=== PATIENT | female | born 1945 | race Caucasian/White ===

== ENCOUNTER 2016-07-22 19:36 | Observation (INO) | payer MEDICARE, BC ==
--- NOTE | ~2016-07-22 | DS ---
Discharge Summary [facility] [address] [place]. [address] NAME: FIDENCIO LOVE : 43 STATUS : DIS Shmuel PAT#: [id number] AGE: 70 ADM/REG DATE : 07/22/16 MR#: [id number] REPORT SERV DATE: 07/25/16 DICTATED BY: EDWIN KAN DATE: 07/24/16 REPORT STATUS : Draft TRANSCRIBED BY: MODL DATE: 07/24/16 ADMISSION DATE: 07/22/2016 DISCHARGE DATE: 07/24/2016 HOSPITAL COURSE: A 70-year-old female with known history of iron deficiency anemia; history of oral mandibular dystonia, possibly due to psychiatric medication in the past; history of hiatal hernia; known history of osteoporosis; generalized anxiety disorder; and rectocele, status post surgical repair in the past. The patient comes in not taking any NSAIDs except aspirin, hemoglobin of 5.7, microcytic MCV of 63, baseline appears to be near 9 to 10 back in 01/2016. Symptomatic anemia with shortness of breath, as a result was given 2 PRBC infusions. Her guaiac was interestingly negative, placed on PPI intravenous b.i.d. I attempted an endoscopic evaluation, the patient adamantly refused as she had some trauma from her mother unexpectedly having a fatal complication of perforation from colonoscopy in the past. As a result of the patient's guaiac negativity was given iron dextran after 2 PRBC infusions. Haptoglobin LDH was done, LDH was 163, however, that was after transfusion. Initially, it was 214 though. Haptoglobin is pending. Peripheral smear is also pending, but that was again done after PRBC infusion, could skew the results. CT of abdomen and pelvis showed a very large hiatal hernia; adjacent mid mild atelectasis; mild diverticulosis, sigmoid; and multiple DJD, thoracolumbar spine. The patient declined any endoscopic evaluation from [facility] Ambrosio as a referral as an outpatient as well as Hematology given guaiac negativity. No overt bleed but likely there is a chronic slow bleed, if anything could consider possible nuclear medicine scan as an outpatient. DISCHARGE MEDICATIONS: Prozac 20 p.o. daily; Ativan 1 mg p.o. at bedtime, will try to titrate that down as an outpatient; Prilosec 20 p.o. b.i.d., could consider using that for three months and PPI p.o. daily thereafter; Flonase nasal spray; oral iron 300 p.o. t.i.d. with meals; Ensure 1 can p.o. b.i.d., due to her dystonia she is having decreased intake, needs adequate nutrition, is to use Ensure Boost aggressively. CONSULTATIONS: GI. PROCEDURES: None. DISCHARGE DIAGNOSES: 1. Symptomatic anemia/iron deficiency anemia. She had a low iron and low ferritin. 2. Oral mandibular dystonia. 3. Generalized anxiety disorder. 4. Mild protein-calorie malnutrition. All questions were answered, took over 30 minutes to do. TYRELL/ALTON Edwin Kan DO Discharge Summary [address] [address] NAME: FIDENCIO LOVE : 43 STATUS : DIS Shmuel PAT#: [id number] AGE: 70 ADM/REG DATE : 07/22/16 MR#: [id number] REPORT SERV DATE: 07/25/16 DICTATED BY: EDWIN KAN DATE: 07/24/16 REPORT STATUS : Draft TRANSCRIBED BY: ALTON DATE: 07/24/16 / [id number]
--- NOTE | ~2016-07-22 | CN ---
Consultation Report [place] [id number] [facility] [place]. [address] NAME: FIDENCIO LOVE : 43 STATUS : ADM Shmuel PAT#: [id number] AGE: 70 ADM/REG DATE : 07/22/16 MR#: [id number] REPORT SERV DATE: 07/23/16 DICTATED BY: YOUNG TO DATE: 07/23/16 REPORT STATUS : Draft TRANSCRIBED BY: MODJoao DATE: 07/23/16 GI CONSULTATION DATE OF CONSULTATION: HISTORY OF PRESENT ILLNESS: The patient is a 70-year-old white female whom I am consulted for anemia. The patient evidently has anemia for some period of time. Her hemoglobin was noted to drop from 9.2 to 5.6. She denies any bleeding, any heartburn, any dysphagia, early satiety, or change in her bowel habits. She has not had colonoscopy or endoscopic workup at any point. She has been on iron therapy before and has had problems with her diet due to some temporomandibular joint dysfunction. PAST MEDICAL HISTORY: 1. Status post rectocele. 2. Mandibular dystonia. MEDICATIONS: Reviewed. She does take aspirin daily, but otherwise, no nonsteroidal. ALLERGIES: NONE. FAMILY HISTORY: Negative for colon cancer with her mother evidently from a perforation, which sounds like after a barium enema. PHYSICAL EXAMINATION: GENERAL: The patient is a pleasant white female, in no acute distress. LUNGS: Clear. CARDIOVASCULAR: Regular rhythm. ABDOMEN: Soft, without masses or tenderness. LABORATORIES: Reviewed. ASSESSMENT: The patient has severe iron-deficiency anemia, certainly occult gastrointestinal malignancy needs to be excluded. It may be that she has difficulty absorbing iron. I have suggested either endoscopic or barium evaluation of her gastrointestinal tract. She is hesitant at this point due to the fact that her mother had a perforation and does not wish to proceed at this time. She wishes to discuss it with her family and think about it later and proceed if she is agreeable to the point. RECOMMENDATION: 1. Continue proton pump inhibitor. 2. Avoid aspirin. 3. Endoscopic evaluation if the patient is agreeable. 4. Certainly iron therapy would be reasonable on this lady. Consultation Report [place] [id number] [facility] [place]. [address] NAME: FIDENCIO LOVE : 43 STATUS : ADM Shmuel PAT#: [id number] AGE: 70 ADM/REG DATE : 07/22/16 MR#: [id number] REPORT SERV DATE: 07/23/16 DICTATED BY: YOUNG TO DATE: 07/23/16 REPORT STATUS : Draft TRANSCRIBED BY: ALTON DATE: 07/23/16 GIUSEPPE/ALTON Young To M.D. / [id number] CC: DO Chan Mo M.D.
--- NOTE | ~2016-07-22 | HP ---
History And Physical [place] [address] [place]. [address] NAME: FIDENCIO LOVE : 43 STATUS : ADM Shmuel PAT#: [id number] AGE: 70 ADM/REG DATE : 07/22/16 MR#: [id number] REPORT SERV DATE: 07/23/16 DICTATED BY: ROLO WELLS DATE: 07/22/16 REPORT STATUS : Draft TRANSCRIBED BY: MODL DATE: 07/22/16 DATE OF ADMISSION: 07/22/2016 POINT OF ENTRY: [facility] Emergency Department. CHIEF COMPLAINT: Weakness, dyspnea on exertion, and low hemoglobin levels. HISTORY OF PRESENT ILLNESS: Ms. Love is a 70-year-old female with a history of iron deficiency anemia, not on iron supplementation, as well as oral mandibular dystonia, known history of hiatal hernia, who presents to the emergency department today from Dr. Goldman's office for low hemoglobin levels as well as associated weakness and dyspnea on exertion. The patient states for the past three weeks, she has had worsening weakness with dyspnea on exertion as well as some sensation of presyncope. She was seen by Dr. Goldman in clinic today and her hemoglobin level was noted to be 5.4, and she was referred to the emergency department, as there were no available beds for direct admission. 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 She has had a prior diagnosis of iron deficiency anemia, but is not on any iron supplements at this time for unclear reasons. She denies any hemoptysis, hematemesis, hematuria, melena, or hematochezia. Is on aspirin, but no other blood thinners. Does not take NSAIDs. Initial evaluation in the emergency department is notable for stable vital signs with a hemoglobin level of 5.7 with an MCV of 63. Remainder of her labs are otherwise unremarkable. She was subsequently admitted to the Hospitalist Service for further evaluation and management. Occult stool here in the ER was negative. COMPREHENSIVE REVIEW OF SYSTEMS: Otherwise negative unless listed in history of present illness. PREVIOUS MEDICAL HISTORY: 1. Iron deficiency anemia, not on treatment. 2. Rectocele, status post repair. 3. Osteoporosis. 4. Hiatal hernia. 5. Anxiety and depression. 6. Oral mandibular dystonia. SURGICAL HISTORY: Rectocele repair. ALLERGIES: NO KNOWN DRUG ALLERGIES. HOME MEDICATIONS: 1. Aspirin 81 mg daily. 2. Prozac 20 mg daily. 3. Flonase one spray nasal daily p.r.n. History And Physical [address] [address] NAME: FIDENCIO LOVE : 43 STATUS : ADM Shmuel PAT#: [id number] AGE: 70 ADM/REG DATE : 07/22/16 MR#: [id number] REPORT SERV DATE: 07/23/16 DICTATED BY: ROLO WELLS DATE: 07/22/16 REPORT STATUS : Draft TRANSCRIBED BY: MODJoao DATE: 07/22/16 4. Ativan 1 mg q.h.s. SOCIAL HISTORY: Denies any tobacco, alcohol, or illicits. FAMILY MEDICAL HISTORY: Mother of complications of an intestinal perforation from a colonoscopy. Father, coronary disease and stroke. Siblings coronary disease. LABS AND IMAGIN. White count is 4.8, hemoglobin is 5.7, hematocrit is 20.6, platelet count is 466. INR 1.0. MCV is 63.2. RDW is 19.5. 2. Sodium is 139, potassium 3.8, chloride 104, carbon dioxide 25, BUN 13, creatinine 0.84, glucose is 168, calcium is 8.7, magnesium is 2.2, protein 7.5, albumin is 3.9, bilirubin is 0.4, ALT is 22, AST is 16, alkaline phosphatase is 48. 3. Troponin less than 0.02. 4. Occult stool negative. 5. TSH is 0.8, free T4 is 1.01. PHYSICAL EXAMINATION: VITAL SIGNS: Temperature is 98.6 degrees Fahrenheit, pulse is 101, respirations 20, saturating 95% on room air, blood pressure is 133/63. On recheck, heart rate is now 85, blood pressure is 122/62. GENERAL: The patient is awake, alert, in no acute distress, resting comfortably in bed. She is a well-developed, well-nourished elderly female. HEENT: Atraumatic and normocephalic. Moist mucous membranes. Pupils are equal, round, and reactive to light and accommodation. Extraocular eye movements are intact. Does have some oral and conjunctival pallor. NECK: No jugular venous distention or no carotid bruits. CARDIAC: Regular rate and rhythm. No murmurs or gallops. Normal S1 and S2. LUNGS: Clear to auscultation bilaterally. No wheezes, rhonchi, or crackles. ABDOMEN: Soft, nontender, nondistended with good bowel sounds. No rebound, guarding, or rigidity. EXTREMITIES: Warm and perfused. No cyanosis, clubbing, or edema. SKIN: Warm and dry. PSYCH: Affect appropriate. NEURO: Alert and oriented x3. Cranial nerves 2 through 12 grossly intact. Speech is normal. Gait not assessed. ASSESSMENT: Ms. Love is a 70-year-old female, who presents to the emergency department with severe symptomatic anemia. PROBLEM LIST: 1. Severe symptomatic anemia. 2. Iron deficiency anemia. PLAN: 1. Severe symptomatic anemia with history of iron deficiency anemia. Despite occult stool being negative, I still strongly suspect GI source for the patient's severe iron History And Physical [address] [address] NAME: FIDENCIO LOVE : 43 STATUS : ADM Shmuel PAT#: [id number] AGE: 70 ADM/REG DATE : 07/22/16 MR#: [id number] REPORT SERV DATE: 07/23/16 DICTATED BY: ROLO WELLS DATE: 07/22/16 REPORT STATUS : Draft TRANSCRIBED BY: ALTON DATE: 07/22/16 deficiency anemia especially in light of an elevated RDW. She has had chronic anemia for some time; however, review of [facility] reveals an acute change, as she had a hemoglobin of 9.9, 01/2016, and her MCV, which chronically has been low only became microcytic, also 01/2016. We will hold her aspirin, place her on some daily Protonix, transfuse 2 units of packed red blood cells, and have Gastroenterology see her for possible EGD and colonoscopy. Repeat iron studies as well as folate, B12, and reticulocyte count are all pending at the time of dictation. The patient may also benefit from some outpatient iron infusions. Replete her stores. The patient is very concerned that her iron deficiency anemia is more from her diet, as she is unable to tolerate any red meat intake or vegetable intake secondary to her oral mandibular dystonia. 2. DVT prophylaxis, TEDs SCDs given severe anemia. CODE STATUS: The patient wished to be full code. JAMES/ALTON Rolo Wells MD / [id number] CC: Brayan Olivas M.D.
[2016-07-22 13:24] LABS: D-DIMER QUANTITATIVE 0.37 ug/mLFEU (< 0.50)
[2016-07-22 13:29] LABS: BUN (BLOOD UREA NITROGEN) 13 MG/DL (6-23); CALCIUM, SERUM 8.8 MG/DL (8.5-10.4); CHLORIDE, SERUM 105 MMOL/L (96-112); CO2 (CARBON DIOXIDE) 26 MMOL/L (24-34); CREATININE 0.73 MG/DL (0.55-1.02); FREE T4 1.01 NG/DL (0.76-1.46); GFR AFRICAN AMERICAN 96 ML/MIN (>=60); GFR NON AFRICAN AMERICAN 83 ML/MIN (>=60); POTASSIUM, SERUM 4.5 MMOL/L (3.5-5.3); SODIUM, SERUM 138 MMOL/L (135-148)
[2016-07-22 13:34] LABS: BASOPHILS 2.1 %; EOSINOPHILS 4.3 %; LYMPHOCYTES 29.5 %; LYMPHOCYTES ABSOLUTE 1.38 10/3/uL (0.67-4.30); MEAN PLATELET VOLUME 8.7 fL (9.2-13.0); MONOCYTES ABSOLUTE 0.56 10/3/uL (0.21-1.20); NEUTROPHILS 52.1 %; NEUTROPHILS ABSOLUTE 2.44 10/3/uL (2.02-8.40); PLATELET COUNT 459 10/3/uL (150-400); RBC DISTRIBUTION WIDTH 19.8 % (12.0-16.0); WHITE BLOOD CELLS 4.7 10/3/uL (4.5-10.5)
[2016-07-22 13:36] LABS: HEMATOCRIT 19.5 % (36.0-48.0); HEMOGLOBIN 5.4 g/dL (12.0-16.0); MANUAL DIFF NO %; MEAN CORPUS HGB CONC 27.7 g/dL (32.0-36.0); MEAN CORPUSCULAR HEMOGLOB 17.7 pg (26.0-34.0); MEAN CORPUSCULAR VOLUME 63.9 fL (80-100); RED CELL COUNT 3.05 10/6/uL (4.0-5.6)
[2016-07-22 13:40] LABS: TROPONIN I <0.02 NG/ML (<0.05)
[2016-07-22 13:45] LABS: GLUCOSE, SERUM 86 MG/DL (60-99); ULTRASENSITIVE TSH 0.879 MCIU/ML (0.358-3.740)
[2016-07-22 13:52] LABS: ANISOCYTOSIS 1+ (5-10/OIF) (0-5/OIF); HYPOCHROMIA 3+ (>30/OIF) (0-2/OIF); MICROCYTES 4+ (>50/OIF) (0-5/OIF); PLATELET ESTIMATE SLT INC (ADEQUATE)
[2016-07-22 13:53] LABS: SCHISTOCYTES FEW (3-10/OIF)
[2016-07-22 13:54] LABS: ELLIPTOCYTES 1+ (3-10/OIF) (0-2/OIF)
[2016-07-22 15:40] LABS: BASOPHILS 2.3 %; BASOPHILS ABSOLUTE 0.11 10/3/uL (0.0-0.16); EOSINOPHILS 4.8 %; EOSINOPHILS ABSOLUTE 0.23 10/3/uL (0.0-0.53); ER CBC TAT 0 Hrs 05 Mins; LYMPHOCYTES ABSOLUTE 1.72 10/3/uL (0.67-4.30); MEAN CORPUS HGB CONC 27.7 g/dL (32.0-36.0); MEAN CORPUSCULAR HEMOGLOB 17.5 pg (26.0-34.0); MEAN CORPUSCULAR VOLUME 63.2 fL (80-100); MEAN PLATELET VOLUME 8.5 fL (9.2-13.0); MONOCYTES 5.6 %; MONOCYTES ABSOLUTE 0.27 10/3/uL (0.21-1.20); NEUTROPHILS 51.3 %; NEUTROPHILS ABSOLUTE 2.45 10/3/uL (2.02-8.40); PLATELET COUNT 466 10/3/uL (150-400); RBC DISTRIBUTION WIDTH 19.5 % (12.0-16.0); RED CELL COUNT 3.26 10/6/uL (4.0-5.6); WHITE BLOOD CELLS 4.8 10/3/uL (4.5-10.5)
[2016-07-22 15:41] LABS: HEMATOCRIT 20.6 % (36.0-48.0); HEMOGLOBIN 5.7 g/dL (12.0-16.0)
[2016-07-22 15:46] LABS: MANUAL DIFF NO %
[2016-07-22 15:47] LABS: PARTIAL THROMBO TIME 29.2 SEC (22.5-37.2); PROTIME (NOT ORD) 13.5 SEC (12.0-14.5)
[2016-07-22 15:54] LABS: A/G RATIO 1.1 (0.7-1.9); ALBUMIN 3.9 G/DL (3.5-5.0); ALKALINE PHOSPHATASE 48 U/L (45-117); BUN (BLOOD UREA NITROGEN) 13 MG/DL (6-23); CALCIUM, SERUM 8.7 MG/DL (8.5-10.4); CHLORIDE, SERUM 104 MMOL/L (96-112); CO2 (CARBON DIOXIDE) 25 MMOL/L (24-34); CREATININE 0.84 MG/DL (0.55-1.02); GFR AFRICAN AMERICAN 81 ML/MIN (>=60); GFR NON AFRICAN AMERICAN 70 ML/MIN (>=60); GLOBULIN 3.6 G/DL (2.5-4.1); POTASSIUM, SERUM 3.8 MMOL/L (3.5-5.3); SGOT(AST) 16 U/L (5-40); SGPT(ALT) 22 U/L (5-65); SODIUM, SERUM 139 MMOL/L (135-148); TOTAL BILIRUBIN 0.4 MG/DL (0-1.2); TOTAL PROTEIN 7.5 G/DL (6.0-8.5)
[2016-07-22 15:55] LABS: GLUCOSE, SERUM 168 MG/DL (60-99)
[2016-07-22 18:09] LABS: RETICULOCYTE COUNT 1.2 % (0.5-2.9); RETICULOCYTE COUNT ABSOLUTE 37.6 10/3/uL (20.2-119.8)
[~2016-07-22 19:36] MED LIST: ASA5GR PO; PRAVAC PO; RECLAST IV; VIACTIV PO
[2016-07-22] MEDS ORDERED: ATV1 PO (19:44)
[2016-07-22] MEDS ORDERED: ASAB PO (19:44)
[2016-07-22] MEDS ORDERED: PROZAC PO (19:44)
[2016-07-22] MEDS ORDERED: FLONASE NAS (19:45)
[2016-07-22 19:50] LABS: % IRON SAT 1 % (20-50); FERRITIN 2 NG/ML (8-252); IRON BINDING CAPACITY 570 MCG/DL (225-410); IRON, SERUM 8 MCG/DL (35-150)
[2016-07-22 22:33] LABS: RETICULOCYTE COUNT 1.4 % (0.5-2.9)
[2016-07-22 22:34] LABS: RETICULOCYTE COUNT ABSOLUTE 43.8 10/3/uL (20.2-119.8)
[2016-07-22 23:05] LABS: FERRITIN 2 NG/ML (8-252); FOLATE 13.6 NG/ML (>5.2); IRON BINDING CAPACITY 611 MCG/DL (225-410); IRON, SERUM 11 MCG/DL (35-150)
[2016-07-23 06:57] LABS: BASOPHILS 2.4 %; BASOPHILS ABSOLUTE 0.09 10/3/uL (0.0-0.16); EOSINOPHILS 9.3 %; EOSINOPHILS ABSOLUTE 0.35 10/3/uL (0.0-0.53); HEMATOCRIT 27.4 % (36.0-48.0); HEMOGLOBIN 8.3 g/dL (12.0-16.0); LYMPHOCYTES 29.5 %; LYMPHOCYTES ABSOLUTE 1.11 10/3/uL (0.67-4.30); MEAN CORPUS HGB CONC 30.3 g/dL (32.0-36.0); MEAN CORPUSCULAR HEMOGLOB 20.9 pg (26.0-34.0); MEAN CORPUSCULAR VOLUME 68.8 fL (80-100); MEAN PLATELET VOLUME 8.9 fL (9.2-13.0); MONOCYTES 10.1 %; MONOCYTES ABSOLUTE 0.38 10/3/uL (0.21-1.20); NEUTROPHILS 48.7 %; NEUTROPHILS ABSOLUTE 1.83 10/3/uL (2.02-8.40); PLATELET COUNT 367 10/3/uL (150-400); RBC DISTRIBUTION WIDTH 22.1 % (12.0-16.0); RED CELL COUNT 3.98 10/6/uL (4.0-5.6); WHITE BLOOD CELLS 3.8 10/3/uL (4.5-10.5)
[2016-07-23 06:58] LABS: MANUAL DIFF NO %
[2016-07-23 07:03] LABS: BUN (BLOOD UREA NITROGEN) 10 MG/DL (6-23); CHLORIDE, SERUM 110 MMOL/L (96-112); CO2 (CARBON DIOXIDE) 24 MMOL/L (24-34); CREATININE 0.68 MG/DL (0.55-1.02); GFR AFRICAN AMERICAN 102 ML/MIN (>=60); GFR NON AFRICAN AMERICAN 88 ML/MIN (>=60); GLUCOSE, SERUM 87 MG/DL (60-99); POTASSIUM, SERUM 3.6 MMOL/L (3.5-5.3); SODIUM, SERUM 144 MMOL/L (135-148)
[2016-07-23 07:36] LABS: HYPOCHROMIA 1+ (3-10/OIF) (0-2/OIF); PLATELET ESTIMATE ADQ (ADEQUATE)
[2016-07-23 07:37] LABS: ELLIPTOCYTES 1+ (3-10/OIF) (0-2/OIF); POIKILOCYTOSIS 1+ (5-10/OIF) (0-5/OIF); SCHISTOCYTES OCC (0-2/OIF); TARGET CELLS FEW (3-10/OIF) (0-1/OIF)
[2016-07-24 06:36] LABS: BASOPHILS 1.8 %; BASOPHILS ABSOLUTE 0.09 10/3/uL (0.0-0.16); EOSINOPHILS ABSOLUTE 0.49 10/3/uL (0.0-0.53); HEMOGLOBIN 8.4 g/dL (12.0-16.0); IMMATURE GRANULOCYTES 0.2 %; IMMATURE GRANULOCYTES ABSOLUTE 0.01 10/3/uL (0.0-0.11); LYMPHOCYTES 30.5 %; MEAN CORPUSCULAR HEMOGLOB 20.6 pg (26.0-34.0); MEAN CORPUSCULAR VOLUME 68.8 fL (80-100); MEAN PLATELET VOLUME 9.5 fL (9.2-13.0); MONOCYTES 11.6 %; MONOCYTES ABSOLUTE 0.57 10/3/uL (0.21-1.20); NEUTROPHILS 45.9 %; NEUTROPHILS ABSOLUTE 2.25 10/3/uL (2.02-8.40); PLATELET COUNT 394 10/3/uL (150-400); RBC DISTRIBUTION WIDTH 22.7 % (12.0-16.0); RED CELL COUNT 4.07 10/6/uL (4.0-5.6); WHITE BLOOD CELLS 4.9 10/3/uL (4.5-10.5)
[2016-07-24 06:41] LABS: BUN (BLOOD UREA NITROGEN) 7 MG/DL (6-23); CALCIUM, SERUM 8.2 MG/DL (8.5-10.4); CHLORIDE, SERUM 111 MMOL/L (96-112); CO2 (CARBON DIOXIDE) 24 MMOL/L (24-34); CREATININE 0.61 MG/DL (0.55-1.02); GFR AFRICAN AMERICAN 106 ML/MIN (>=60); GFR NON AFRICAN AMERICAN 91 ML/MIN (>=60); GLUCOSE, SERUM 96 MG/DL (60-99); SODIUM, SERUM 145 MMOL/L (135-148)
[2016-07-24 06:44] LABS: MANUAL DIFF NO %
[2016-07-24 06:46] LABS: POTASSIUM, SERUM 3.7 MMOL/L (3.5-5.3)
[2016-07-24 07:09] LABS: ELLIPTOCYTES 1+ (3-10/OIF) (0-2/OIF); HYPOCHROMIA 3+ (>30/OIF) (0-2/OIF); PLATELET ESTIMATE ADQ (ADEQUATE); SCHISTOCYTES OCC (0-2/OIF)
[2016-07-24] MEDS ORDERED: PRILO PO (14:28)
[2016-07-24] MEDS ORDERED: FESO4 PO (14:30)
== END 2016-07-24 16:44 | disposition home or self-care (01) ==
LOC: ER 19:36 → 7NO 20:49
PROVIDERS: Emergency Medicine; Internal Medicine
DX: D50.9 Iron deficiency anemia, unspecified (principal); G24.4 Idiopathic orofacial dystonia; F41.9 Anxiety disorder, unspecified; E44.1 Mild protein-calorie malnutrition; M81.0 Age-related osteoporosis without current pathological fracture; K44.9 Diaphragmatic hernia without obstruction or gangrene; F32.9 Major depressive disorder, single episode, unspecified; Z79.899 Other long term (current) drug therapy; Z98.890 Other specified postprocedural states; Z79.82 Long term (current) use of aspirin; Z82.3 Family history of stroke; Z82.49 Family history of ischemic heart disease and other diseases of the circulatory system
CPT/HCPCS: 36415; 74176; 80048; 80053; 82533; 82607; 82728; 82746; 83010; 83540; 83550; 83615; 83735; 84100; 84439; 84443; 84484; 85025; 85045; 85379; 85610; 85730; 86850; 86900; 86901; 86920; 93005; 96374; 96376; 99285; A9270-GY; C9113; G0378; J1750; P9016